=== PATIENT | male | born 1945 | race Caucasian/White ===

== ENCOUNTER 2025-04-23 08:42 | Emergency (ER) | payer MEDICARE ==
[2025-04-23 09:30] VITALS: BP 145/75; PULSE 82
[2025-04-23 10:18] LABS: BASOPHILS ABSOLUTE AUTO 0.06 K/uL (0.00-0.10); BASOPHILS PERCENT AUTO 1.0 % (0.1-1.3); EOSINOPHILS ABSOLUTE AUTO 0.12 K/uL (0.00-0.40); EOSINOPHILS PERCENT AUTO 2.1 % (0.0-5.4); IMMATURE GRAN ABSOLUTE AUTO 0.03 K/uL (0.00-0.23); IMMATURE GRAN PERCENT AUTO 0.5 % (0.0-0.7); LYMPHOCYTES ABSOLUTE AUTO 1.84 K/uL (0.8-3.3); LYMPHOCYTES PERCENT AUTO 31.6 % (11.4-47.7); MONOCYTES ABSOLUTE AUTO 0.72 K/uL (0.20-0.90); MONOCYTES PERCENT AUTO 12.3 % (3.3-12.6); NEUTROPHILS ABSOLUTE AUTO 3.06 K/uL (1.0-7.6); NEUTROPHILS PERCENT AUTO 52.5 % (40.0-78.1); PLATELET COUNT,PLT 253 K/uL (130-375); RED BLOOD CELL COUNT 5.22 M/uL (4.14-5.76); WHITE BLOOD CELL COUNT,WBC 5.8 K/uL (3.2-11.0)
[2025-04-23] MEDS: Sodium Chloride 0.9% 10 ML Syringe FLUSH PRN (10:28)
[2025-04-23] MEDS: Iopamidol 612 MG/ML 100 ML Bottle IV PRN (10:29)
[2025-04-23 10:54] LABS: CHLORIDE,CL 98 mmol/L (100-108); POTASSIUM,K 3.9 mmol/L (3.6-5.2); SODIUM,NA 136 mmol/L (140-148)
[2025-04-23 12:56] LABS: EST CRCL DRUG DOSING (CG) 78.65 mL/min; ESTIMATED GFR 87 mL/min (>60)
[2025-04-23 13:09] LABS: A/G RATIO 0.8 (1.2-2.2); ALANINE AMINOTRANSFERASE,ALT 53 U/L (12-78); ASPARTATE AMNIOTRANSFERASE,AST 33 U/L (15-37); BILIRUBIN TOTAL 0.5 mg/dL (0.2-1.0); BLOOD UREA NITROGEN,BUN 13 mg/dL (7-18); CARBON DIOXIDE,CO2 24 mmol/L (21-32); CREATININE 0.9 mg/dL (0.8-1.3); GLUCOSE RANDOM 171 mg/dL (74-106); PROTEIN TOTAL,TP 8.1 g/dL (6.4-8.2)
== END 2025-04-23 12:11 | disposition home or self-care (01) ==
LOC: JP.ED 08:42
DX: K63.0 Abscess of intestine (principal); I10 Essential (primary) hypertension; E11.9 Type 2 diabetes mellitus without complications; Z79.899 Other long term (current) drug therapy; Z79.82 Long term (current) use of aspirin; Z79.84 Long term (current) use of oral hypoglycemic drugs; Z86.16 Personal history of COVID-19; Z87.891 Personal history of nicotine dependence
CPT/HCPCS: 36415; 74177; 80053; 85025; 99284; Q9967